=== PATIENT | male | born 1990 | race Caucasian/White ===

== ENCOUNTER 2020-07-17 11:34 | Emergency (ER) | payer OTHER ==
[~2020-07-17] VITALS: Ht 170.2 cm; Wt 72.7 kg
[2020-07-17 14:12] LABS: COVID AG,FIA SOURCE NASAL SWAB
[2020-07-17 15:07] VITALS: BP 127/59
== END 2020-07-17 16:04 | disposition home or self-care (01) ==
LOC: EMS 11:41
DX: J06.9 Acute upper respiratory infection, unspecified (principal); J40 Bronchitis, not specified as acute or chronic; F12.90 Cannabis use, unspecified, uncomplicated; Z20.828 Contact with and (suspected) exposure to other viral communicable diseases
CPT/HCPCS: 71045; 87426; 99284; U0003